=== PATIENT | male | born 1995 | race Caucasian/White ===

== ENCOUNTER 2019-04-05 01:18 | Emergency (ER) | payer SELFPAY ==
[~2019-04-05] VITALS: Ht 167.6 cm; Wt 79.2 kg
[2019-04-05 01:50] VITALS: Ht 167.6 cm; Wt 79.2 kg
[2019-04-05 04:30] VITALS: BP 144/84
== END 2019-04-05 04:30 | disposition home or self-care (01) ==
LOC: ED 01:18
DX: J10.1 Influenza due to other identified influenza virus with other respiratory manifestations (principal)
CPT/HCPCS: 87804; Q0162

== ENCOUNTER 2019-04-10 19:50 | Emergency (ER) | payer SELFPAY ==
[~2019-04-10] VITALS: Ht 167.6 cm; Wt 76.2 kg
[2019-04-10 20:01] VITALS: BP 139/92; Ht 167.6 cm; Wt 76.2 kg
== END 2019-04-10 21:51 | disposition home or self-care (01) ==
LOC: ED 19:50
DX: J11.1 Influenza due to unidentified influenza virus with other respiratory manifestations (principal)